=== PATIENT | male | born 1965 | race Caucasian/White ===

== ENCOUNTER → 2020-11-14 16:26 | Outpatient (CLI) | payer MEDICARE, MEDICAID, SELFPAY ==
--- NOTE | 2020-11-14 16:57 | XR_ITS ---
PROCEDURE INFORMATION: Exam: XR Lumbosacral Spine Exam date and time: 11/14/2020 4:57 PM Age: 55 years old Clinical indication: Pain; Other: Lumbar spondylosis TECHNIQUE: Imaging protocol: XR of the lumbosacral spine. Views: 4 or 5 views. COMPARISON: No relevant prior studies available. FINDINGS: Bones/joints: No malalignment. Vertebral body heights are maintained. Multilevel degenerative changes are noted. Degenerative disc changes are worst at L4-L5 and L5-S1. [id number] multilevel degenerative facet arthropathy is seen worst in the lower lumbar spine. Soft tissues: Unremarkable. Soft tissues notable for atherosclerosis and right upper quadrant surgical clips. IMPRESSION: [id number] multilevel degenerative spondylopathy worst in the lower lumbar spine
== END ==
PROVIDERS: PCP Anesthesiology; Visit Provider Anesthesiology
DX: M47.816 Spondylosis without myelopathy or radiculopathy, lumbar region (principal)
CPT/HCPCS: 72110